=== PATIENT | female | born 1970 | race Caucasian/White ===

== ENCOUNTER 2017-12-20 07:41 | Outpatient (CLI) | payer OTHER ==
--- NOTE | 2017-12-20 09:41 | MRI ---
CERVICAL SPINE MRI WITHOUT CONTRAST: DATE: 12/20/17. COMPARISON: None. HISTORY: Neck pain and radiculopathy, bilateral arm weakness. TECHNIQUE: Multiplanar, multisequence MR imaging of the cervical spine is provided without contrast. FINDINGS: The sagittal STIR imaging demonstrates no focal area of osseous marrow edema. Cervical vertebral body height and alignment appears within normal limits. There is mild degenerativ e change at the atlantoaxial interspace. C2-3: No significant central canal or neural foraminal stenosis. Mild bilateral facet hypertrophy. C3-4: Minimal disk bulge with no central canal stenosis. No significant neural foraminal stenosis. C4-5: Mild disk bulge with partial effacement of ventral thecal sac. No significant central canal s tenosis. Mild bilateral facet and uncovertebral osteophyte formation, right greater than left. Mild right neural foraminal stenosis. C5-6: Disk desiccation, mild disk space narrowing, and minimal disk bulge with partial effacement of the ventral thecal sac. Small central disk protrusion. No significant central canal or neural fora ana stenosis. C6-7: No significant central canal or neural foraminal stenosis. C7-T1: No significant central canal or neural foraminal stenosis. No focal area of abnormal signal intensity is identified within the cervical cord. IMPRESSION: No significant central canal or neural foraminal stenosis. Scattered areas of degenerative change as described above. POS: GAYLA
== END 2017-12-20 07:42 | disposition home or self-care (01) ==
LOC: TBSIIMAG 07:41
PROVIDERS: ATTEND Physician Assistant
DX: M47.892 Other spondylosis, cervical region (principal); M54.2 Cervicalgia; R29.898 Other symptoms and signs involving the musculoskeletal system
CPT/HCPCS: 72141

== ENCOUNTER 2018-01-19 15:44 | Outpatient (CLI) | payer OTHER ==
--- NOTE | 2018-01-19 17:10 | MRI ---
MRI OF THE LUMBAR SPINE WITHOUT CONTRAST 01/19/18 INDICATION: Acute left sided low back pain. FINDINGS: There is a partially visualized T2 hyperintense, T1 hypointense 2.2 cm lesion involving the left mid kidney suspicious for a cyst but incompletely characterized. There is also a lobulated T2 hyperintens e 2.1 cm lesion involving the suspected right adnexa. This also is incompletely evaluated but suspici ous for mildly complex cyst. 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 Conus is seen to terminate at approximately L1. At L5-S1, there is a broad based bulge with a superimposed central to right paracentral protrusion in ducing mild bilateral neural foraminal narrowing. The protrusion is causing some encroachment on the traversing right S1 nerve root. At L4-5, there is a broad based bulge with facet hypertrophy inducing moderate bilateral neural isabell inal narrowing. At L3-4, there is a broad based bulge with superimposed left paracentral to foraminal protrusion. The protrusion encroaches upon the traversing left L4 nerve root in the left lateral recess without defi nite impingement. The protrusion does extend into the left foramina and induces moderate left neural foraminal narrowing. At L2-3, there is no appreciable central canal or neural foraminal narrowing. At L1-2, there is no appreciable central canal or neural foraminal narrowing. At T12-L1, there is no appreciable central canal or neural foraminal narrowing. IMPRESSION: 1. Moderate bilateral neural foraminal narrowing at L4-5 due to a broad based disc bulge with fa cet hypertrophy. 2. Moderate left neural foraminal narrowing at L3-4 due to a left paracentral-left foraminal dis c protrusion. The protrusion does encroach on the left lateral recess and traversing left L4 nerve ro ot without definite impingement. 3. Small right paracentral protrusion encroaching on the traversing right S1 nerve at L5-S1 with out definite impingement. 4. Complex cystic lesion involving the right adnexa and suspected cyst involving the left kidney . Followup renal ultrasound and pelvic ultrasound is recommended for additional characterization. Code T POS: GAYLA
== END 2018-01-19 15:45 | disposition home or self-care (01) ==
LOC: MRI 15:44
PROVIDERS: ATTEND Physician Assistant
DX: M54.42 Lumbago with sciatica, left side (principal); M51.86 Other intervertebral disc disorders, lumbar region; M51.26 Other intervertebral disc displacement, lumbar region; M51.27 Other intervertebral disc displacement, lumbosacral region; M99.83 Other biomechanical lesions of lumbar region; N85.8 Other specified noninflammatory disorders of uterus
CPT/HCPCS: 72148

== ENCOUNTER 2018-01-25 15:17 | Outpatient (CLI) | payer OTHER ==
--- NOTE | 2018-01-25 15:45 | RAD ---
FOUR VIEWS OF THE LUMBOSACRAL SPINE: Comparison: 11-27-14 History: Low back pain radiating down the left leg. FINDINGS: AP, lateral, flexion and extension views of the lumbosacral spine were performed. Vertebral bodies de monstrate normal height and alignment without acute fracture or subluxation. A small osteophyte is se en off the superior endplate of L4. Alignment is unchanged with flexion and extension. IMPRESSION: Unchanged alignment of the lumbar spine with bending. POS: GAYLA
== END 2018-01-25 15:18 | disposition home or self-care (01) ==
LOC: TBSIIMAG 15:17
PROVIDERS: ATTEND Neurological Surgery
DX: M54.12 Radiculopathy, cervical region (principal)
CPT/HCPCS: 72110

== ENCOUNTER 2019-04-05 10:00 | Outpatient (CLI) | payer OTHER ==
--- NOTE | 2019-04-05 10:34 | MMO ---
Bilateral MAMMO Bilat Screen [facility]. CLINICAL HISTORY: Patient is 49 years old and is seen for screening. The patient has the following family history of breast cancer: maternal aunt, at age 30. The patient has no personal history of cancer. VIEWS: The views performed were: bilateral craniocaudal with tomosynthesis; bilateral mediolateral oblique with tomosynthesis; and bilateral exaggerated craniocaudal. FILMS COMPARED: The present examination has been compared to prior imaging studies performed at [facility] on 03/14/2014, and at [facility] on 11/02/2012. This study has been interpreted with the assistance of computer-aided detection. MAMMOGRAM FINDINGS: There are scattered fibroglandular densities. There are no suspicious masses, suspicious calcifications, or new areas of architectural distortion. IMPRESSION: THERE IS NO MAMMOGRAPHIC EVIDENCE OF MALIGNANCY. A ROUTINE FOLLOW-UP MAMMOGRAM IN 1 YEAR IS RECOMMENDED. THE RESULTS OF THIS EXAM WERE SENT TO THE PATIENT. ACR BI-RADS Category 1 - Negative MAMMOGRAPHY NOTE: 1. A negative mammogram report should not delay a biopsy if a dominant of clinically suspicious mass is present. 2. Approximately 10% to 15% of breast cancers are not detected by mammography. 3. Adenosis and dense breasts may obscure an underlying neoplasm. Reported by: MARY BETH ALBARADO MD Electonically Signed: [id number]
== END 2019-04-05 10:01 | disposition home or self-care (01) ==
LOC: BICMAMMO 10:00
PROVIDERS: ATTEND Physician Assistant
DX: Z12.31 Encounter for screening mammogram for malignant neoplasm of breast (principal); Z80.3 Family history of malignant neoplasm of breast
CPT/HCPCS: 77063; 77067

== ENCOUNTER 2020-12-02 08:20 | Outpatient (CLI) | payer OTHER | END 2020-12-02 08:21 | disposition home or self-care (01) | LOC: BICRAD 08:20 | PROVIDERS: ATTEND Internal Medicine Critical Care Medicine | DX: R06.00 Dyspnea, unspecified (principal) | CPT/HCPCS: 71046 ==

== ENCOUNTER 2020-12-04 13:00 | Outpatient (CLI) | payer OTHER | END 2020-12-04 13:01 | disposition home or self-care (01) | LOC: NM 13:00 | PROVIDERS: ATTEND Internal Medicine Critical Care Medicine | DX: I26.99 Other pulmonary embolism without acute cor pulmonale (principal) | CPT/HCPCS: 71046; 78451; A9540 ==

== ENCOUNTER 2021-04-08 09:59 | Outpatient (CLI) | payer OTHER | END 2021-04-08 10:00 | disposition home or self-care (01) | LOC: BICMAMMO 09:59 | PROVIDERS: ATTEND Physician Assistant | DX: Z12.31 Encounter for screening mammogram for malignant neoplasm of breast (principal); Z80.3 Family history of malignant neoplasm of breast | CPT/HCPCS: 77063; 77067 ==